=== PATIENT | female | born 1990 | race American Indian/Alaskan Native ===

== ENCOUNTER 2017-12-24 08:33 | Emergency (ER) | payer MEDICAID ==
--- NOTE | 2017-12-24 09:57 | Emergency Department Report ---
HPI - General Chief Complaint: Extremity Injury, Lower Time Seen by Provider: 12/24/17 09:36 - HPI HPI: Patient is a 27-year-old female who presents to ED complaining of right knee pain 1 day. Patient states yesterday she was coming down the stairs she missed the last 2 steps and fell and hit her knee. Patient states pain began yesterday with throbbing and is worse this morning. Patient states she had suddenly forward because the more she was standing on her feet was worsening the right knee pain. She denies loss of sensation, swelling. She denies hitting her head or denies any loss of consciousness ED Past Medical Hx - Past Medical History Previous Medical History?: No - Surgical History Past Surgical History?: Yes Hx Appendectomy: Yes - Social History Smoking Status: Current Every Day Smoker Substance Use Type: None, Marijuana - Medications Home Medications: Home Medications Medication Instructions Recorded Confirmed Last Taken Type Cyclobenzaprine [Flexeril] 10 mg PO QHS PRN #20 tablet 12/24/17 Unknown Rx Ibuprofen [Motrin] 800 mg PO Q8HR PRN #40 tablet 12/24/17 Unknown Rx ED Review of Systems ROS: Stated complaint: FALL Other details as noted in HPI Constitutional: denies: chills, fever Eyes: denies: eye pain, eye discharge, vision change ENT: denies: ear pain, throat pain Respiratory: denies: cough, shortness of breath, wheezing Cardiovascular: denies: chest pain, palpitations Endocrine: no symptoms reported Gastrointestinal: denies: abdominal pain, nausea, diarrhea Genitourinary: denies: urgency, dysuria, discharge Musculoskeletal: denies: back pain, joint swelling, arthralgia Skin: denies: rash, lesions Neurological: denies: headache, weakness, paresthesias Psychiatric: denies: anxiety, depression Hematological/Lymphatic: denies: easy bleeding, easy bruising Physical Exam - Physical Exam Vital Signs: Vital Signs 12/24/17 08:38 Temperature 98.5 F Pulse Rate 83 Respiratory 18 Rate Blood Pressure 134/70 O2 Sat by Pulse 100 Oximetry Physical Exam: GENERAL: Alert and oriented x3, no apparent distress, Normal Gait, atraumatic. HEAD: Head is normocephalic and a-traumatic. LUNGS: Symetrical with respiration, No wheezing, no rales or crackles, CTAB. HEART: S1, S2 present, regular rate and rhythm without murmur, no rubs, no gallops. Non tender to palpation EXTREMITIES/MUSCULOSKELETAL: No cyanosis, clubbing, rash, lesions or edema. Full ROM bilaterally. . LE 5+ strength bilaterally, no calf tenderness, minor healing abrasion on right knee, anteriorly tender to palpation. No swelling, no erythema, pain with flexion of the knee but none with extension NEUROLOGIC: The patient is cooperative with no focal neurologic deficits. Normal speech. Normal sensation in bilateral upper and lower extremities, No loss of sensation, SKIN: Warm and dry, No lesions, No ulceration or induration present. ED Course Vital Signs 12/24/17 08:38 Temperature 98.5 F Pulse Rate 83 Respiratory 18 Rate Blood Pressure 134/70 O2 Sat by Pulse 100 Oximetry ED Medical Decision Making - Radiology Data Radiology results: report reviewed, image reviewed - Medical Decision Making 27-year-old female presents to ED with right knee pain status post fall ED course: Patient received Toradol and Flexeril in ED. X-rays ordered. Knee x-ray shows no acute injury or fracture Vital signs are normal patient is in no acute distress Discussed with patient follow-up with primary care physician. Discussed the patient and take medications as prescribed. Patient has no neurological deficit. Patient is alert and oriented 3 and understands all instructions given. Discussed drowsiness effect of Flexeril makes her drowsy and not to operate machinery while taking flexeril Critical care attestation.: If time is entered above; I have spent that time in minutes in the direct care of this critically ill patient, excluding procedure time. ED Disposition Clinical Impression: Knee pain, right Qualifiers: Chronicity: acute Qualified Code(s): M25.561 - Pain in right knee Right knee injury Qualifiers: Encounter type: initial encounter Qualified Code(s): S89.91XA - Unspecified injury of right lower leg, initial encounter Abrasion of knee, right Qualifiers: Encounter type: initial encounter Qualified Code(s): S80.211A - Abrasion, right knee, initial encounter Disposition: TO HOME OR SELFCARE Is pt being admited?: No Does the pt Need Aspirin: No Condition: Stable Instructions: Knee Sprain (ED), Knee Pain (ED), Arthralgia (ED), Knee Exercises (GEN) Additional Instructions: Make sure to follow up with the primary care physician as discussed. Take all your medications as you've been prescribed. If you have any worsening symptoms or develop new symptoms please return to ED immediately. Prescriptions: Cyclobenzaprine [Flexeril] 10 mg PO QHS PRN #20 tablet PRN Reason: Muscle Spasm Ibuprofen [Motrin] 800 mg PO Q8HR PRN #40 tablet PRN Reason: Pain Referrals: [facility] [Outside] - 3-5 Days [facility] [Outside] - 3-5 Days PRIMARY CAREMD [Primary Care Provider] - 3-5 Days KATE RODRÍGUEZ MD [Referring] - 3-5 Days ANDREW WOODS MD [Staff Physician] - 3-5 Days Forms: Work/School Release Form(ED) Time of Disposition: 13:33
[2017-12-24] MEDS: TORADOL IM ONE (10:15)
[2017-12-24] MEDS: FLEXERIL PO ONE (10:15)
--- NOTE | 2017-12-24 10:55 | XRay Report ---
RIGHT KNEE RADIOGRAPHS INDICATION: Fall. COMPARISON: None similar at this institution. FINDINGS: AP, lateral and oblique right knee radiographs demonstrate intact articulation. Mild degenerative spurring throughout. Joint spaces appear fairly preserved. Few small calcifications noted behind the knee. No large suprapatellar effusion. CONCLUSION: 1. Diffuse degenerative spurring, greater than expected for patient of this age, of uncertain etiology. 2. 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 Please correlate. Thank you for the opportunity to participate in this patient's care.
[2017-12-24 11:23] VITALS: BP 130/76
== END 2017-12-24 11:21 | disposition home or self-care (01) ==
LOC: ED 08:33
DX: S80.211A Abrasion, right knee, initial encounter (principal); F17.200 Nicotine dependence, unspecified, uncomplicated; F12.10 Cannabis abuse, uncomplicated; Z90.49 Acquired absence of other specified parts of digestive tract; W10.9XXA Fall (on) (from) unspecified stairs and steps, initial encounter; Y93.01 Activity, walking, marching and hiking; Y99.8 Other external cause status; Y92.89 Other specified places as the place of occurrence of the external cause
CPT/HCPCS: 36415; 73562; 84703; 96372; 99284; J1885